=== PATIENT | male | born 1995 | race Caucasian/White ===

== ENCOUNTER 2022-03-04 15:41 | Emergency (ER) | payer MEDICAID ==
[~2022-03-04] VITALS: Ht 172.7 cm; Wt 77.0 kg
[2022-03-04] MEDS ORDERED: KETOROLAC 15MG/ML VIAL IM ONE (19:00)
[2022-03-04 21:09] VITALS: BP 114/74
== END 2022-03-04 21:22 | disposition home or self-care (01) ==
LOC: ER 15:41
DX: R51.9 Headache, unspecified (principal); R03.0 Elevated blood-pressure reading, without diagnosis of hypertension
CPT/HCPCS: 70450; 82962; 96372; 99284; J1885

== ENCOUNTER 2022-07-31 11:13 | Emergency (ER) | payer MEDICAID ==
[~2022-07-31] VITALS: Ht 167.6 cm; Wt 75.0 kg
[2022-07-31 11:18] VITALS: BP 128/80
== END 2022-07-31 18:00 | disposition left against medical advice (07) ==
LOC: ER 11:13
DX: Z53.21 Procedure and treatment not carried out due to patient leaving prior to being seen by health care provider (principal); R07.9 Chest pain, unspecified
CPT/HCPCS: 93005; 99283

== ENCOUNTER 2022-08-24 08:48 | Emergency (ER) | payer MEDICAID ==
[~2022-08-24] VITALS: Ht 170.2 cm; Wt 78.0 kg
[2022-08-24 12:05] LABS: BASOPHILS % 0.4 % (0.0-2.0); EOSINOPHILS % 0.5 % (0.0-5.0); HEMATOCRIT. 48.8 % (42.0-52.0); HEMOGLOBIN. 16.5 g/dL (14.0-18.0); MEAN CORPUSCULAR HEMOGLOBIN 31.3 pg (28.0-32.0); MEAN CORPUSCULAR VOLUME 92.4 fL (80.0-94.0); MEAN PLATELET VOLUME 7.3 fl (7.4-10.4); MONOCYTES % 8.4 % (2.0-8.0); NEUTROPHILS % 54.7 % (40.0-76.0); PLATELET 281 x1000/uL (130-400); RED BLOOD CELL COUNT 5.28 mill/uL (4.7-6.1); RED CELL DISTRIBUTION WIDTH 12.9 % (11.6-14.6)
[2022-08-24 12:15] LABS: CHLORIDE 105 mEq/L (98-107)
[2022-08-24 12:24] LABS: ETHANOL BLOOD < 10 mg/dL
[2022-08-24] MEDS ORDERED: IBUPROFEN 600MG TABLET PO NR (12:30)
[2022-08-24] MEDS ORDERED: LIDOCAINE 5% PATCH TOP SCH (12:30)
[2022-08-24 13:00] LABS: *AMPHETAMINES SCREEN URINE NEGATIVE (NEGATIVE); *BARBITURATES SCREEN URINE NEGATIVE (NEGATIVE); *BENZODIAZEPINES SCREEN URINE NEGATIVE (NEGATIVE); *COCAINE SCREEN URINE NEGATIVE (NEGATIVE); CANNABINOID URINE SCREEN NEGATIVE (NEGATIVE); METHADONE URINE SCREEN NEGATIVE (NEGATIVE); OPIATES URINE SCREEN NEGATIVE (NEGATIVE); PHENCYCLIDINE URINE SCREEN NEGATIVE (NEGATIVE)
[2022-08-24] MEDS ORDERED: LIDO700A15 TP (15:51)
[2022-08-24] MEDS ORDERED: IBUP-2029 MT (15:51)
[2022-08-24 16:47] VITALS: BP 125/86
== END 2022-08-24 16:51 | disposition home or self-care (01) ==
LOC: ER 08:48
DX: R07.89 Other chest pain (principal); R94.31 Abnormal electrocardiogram [ECG] [EKG]; F12.10 Cannabis abuse, uncomplicated; F17.210 Nicotine dependence, cigarettes, uncomplicated
CPT/HCPCS: 36415; 71045; 80053; 80305; 80320; 83880; 84484; 85025; 85379; 93005; 99285; G0480